=== PATIENT | male | born 1995 | race Caucasian/White ===

== ENCOUNTER 2021-12-05 18:19 | Emergency (ER) | payer OTHER ==
[~2021-12-05 18:19] MED LIST: LODINE CAP 300300 MG PO; NORFLEX 100 MG100 MG PO
[2021-12-05 18:53] LABS: HEMOGLOBIN 13.9 gm/dl (14.0-17.5); RED BLOOD COUNT 4.62 M/UL (4.20-5.50); WHITE BLOOD COUNT 5.4 K/UL (4.5-11.0)
[2021-12-05 19:15] LABS: BUN/CREATININE RATIO 18 (0-10)
[2021-12-05] MEDS ORDERED: KEPPRA1000 MG PO (20:30)
== END 2021-12-05 20:52 ==
LOC: ER1 18:19
PROVIDERS: Emergency Medicine
DX: G40.909 Epilepsy, unspecified, not intractable, without status epilepticus (principal); J45.909 Unspecified asthma, uncomplicated; Z20.822 Contact with and (suspected) exposure to COVID-19; F17.210 Nicotine dependence, cigarettes, uncomplicated
CPT/HCPCS: 70450; 71045; 80053; 80307; 81001; 82550; 82553; 83874; 84484; 85025; 93005; 96374; 99285; J7030; U0002

== ENCOUNTER 2021-12-29 17:05 | Observation (INO) | payer OTHER ==
[~2021-12-29] VITALS: Ht 180.3 cm; Wt 72.6 kg
[~2021-12-29 17:05] MED LIST changes: +KEPPRA1000 MG PO
[2021-12-29 17:43] LABS: HEMOGLOBIN 14.1 gm/dl (14.0-17.5); RED BLOOD COUNT 4.66 M/UL (4.20-5.50); WHITE BLOOD COUNT 5.8 K/UL (4.5-11.0)
[2021-12-29 18:14] LABS: BUN/CREATININE RATIO 17 (0-10)
[2021-12-30] MEDS ORDERED: BUSPAR 10MG10 MG PO (01:31)
[2021-12-30] MEDS ORDERED: KEPPRA1000 MG PO (01:31)
[2021-12-30] MEDS ORDERED: SEROQUEL25 MG PO (01:32)
[2021-12-30] MEDS ORDERED: DILANTIN 100 M100 MG PO (01:32)
[2021-12-30] MEDS ORDERED: CYMBALTA30 MG PO (01:33)
[2021-12-30] MEDS ORDERED: KEPPRA500 MG PO ×2 (08:54→11:12)
== END 2021-12-30 12:15 | disposition other institution (70) ==
LOC: ER1 17:05 → CDU 22:39 → CCU 22:39
PROVIDERS: Emergency Medicine; Student in an Organized Health Care Education/Training Program; ADMIT Internal Medicine
DX: G40.909 Epilepsy, unspecified, not intractable, without status epilepticus (principal); F15.10 Other stimulant abuse, uncomplicated; F12.10 Cannabis abuse, uncomplicated; F17.210 Nicotine dependence, cigarettes, uncomplicated; Z20.822 Contact with and (suspected) exposure to COVID-19; Z79.899 Other long term (current) drug therapy; Z88.0 Allergy status to penicillin; Z88.1 Allergy status to other antibiotic agents
CPT/HCPCS: 36415; 70450; 71045; 80053; 80185; 80307; 81001; 85025; 93005; 96374; 96376; 99285; G0378; J1953; U0002

== ENCOUNTER 2022-01-05 12:00 | Emergency (ER) | payer OTHER ==
[~2022-01-05] VITALS: Ht 180.3 cm; Wt 72.6 kg
[~2022-01-05 12:00] MED LIST changes: +BUSPAR 10MG10 MG PO; +CYMBALTA30 MG PO; +DILANTIN 100 M100 MG PO; +KEPPRA500 MG PO; +SEROQUEL25 MG PO
[2022-01-05 13:20] LABS: BUN/CREATININE RATIO 12 (0-10)
== END 2022-01-05 14:42 | disposition home or self-care (01) ==
LOC: ER1 12:00
PROVIDERS: Emergency Medicine
DX: G40.909 Epilepsy, unspecified, not intractable, without status epilepticus (principal); F17.210 Nicotine dependence, cigarettes, uncomplicated; Z20.822 Contact with and (suspected) exposure to COVID-19
CPT/HCPCS: 80053; 80307; 82550; 82553; 83735; 84484; 87086; 93005; 96374; 99284; G0480; J1953; U0002